=== PATIENT | female | born 1965 | race Caucasian/White ===

== ENCOUNTER 2021-12-05 11:40 | Emergency (ER) | payer OTHER, SELFPAY ==
[2021-12-05 12:18] VITALS: BP 138/78; PULSE 84; RESP 16; TEMP 36.4; O2SAT 96; BMI 29.7
--- NOTE | 2021-12-05 12:39 | ED_ITS ---
HPI - General Adult General Time Seen by Provider: 12:39 Date Seen: 12/05/21 Chief complaint: Extremity Pain/Injury, Lower Stated complaint: Pop/pain in right knee Time Seen by Provider: 12/05/21 11:43 Source: patient Mode of arrival: ambulatory Limitations: no limitations History of Present Illness HPI narrative: Patient is a 48 year white female who was gardening and injured her right knee. She felt a pop in the back of her knee. Her knee has been stiff involving her the last few days. No significant trauma, no for significant swelling in her calf or ankle, but she does have some swelling about her knee itself. No locking or catching. She has noticed a good deal of discomfort. Related Data Home Medications Medication Instructions Recorded Confirmed famotidine 20 mg tablet (Pepcid) 20 mg PO DAILY 12/05/21 12/05/21 ibuprofen 400 mg tablet 400 mg PO TID 12/05/21 12/05/21 Previous Rx's Medication Instructions Recorded ketorolac 10 mg tablet 10 mg PO TID PRN pain 5 days #10 12/05/21 tabs Allergies Allergy/AdvReac Type Severity Reaction Status Date / Time Cephalosporins Allergy Severe Hives Verified 12/05/21 12:26 codeine Allergy Severe Hives Verified 12/05/21 12:26 erythromycin base Allergy Severe Hives Verified 12/05/21 12:26 latex Allergy Severe Verified 12/05/21 12:26 metronidazole Allergy Severe Verified 12/05/21 12:26 penicillin V Allergy Severe Hives Verified 12/05/21 12:26 tetracycline Allergy Severe Hives Verified 12/05/21 12:26 tramadol Allergy Severe Hives Verified 12/05/21 12:26 dexamethasone Allergy Severe Hives Uncoded 12/05/21 12:26 Review of Systems Status of ROS: Reports: 6 or more systems reviewed and unremarkable except as noted in History and below [facility] Social History Smoking Status: Never smoker Do you use any of these nicotine containing products: None Second hand tobacco smoke exposure: No How often do you have a drink containing alcohol: never AUDIT-C Alcohol total score: 0 Non-prescribed substance use: denies use service: No Exam Narrative: Exam Narrative: Objective: Patient has right knee exam that shows mild diffuse swelling, no marked posterior swelling, no lower extremity below the knee swelling. She has got some decent flexibility with extension and flexion, but she does have discomfort, and she is tender posteriorly in the knee. No redness or erythema. Knee is stable to anterior drawer and posterior drawer, no medial lateral joint line tenderness Const: Vital Signs, click to edit/add: Vital Signs - 24 hr 12/05/21 12:18 12/05/21 13:00 Temperature 97.6 F 97.8 F Pulse Rate [Pulse Oximeter] 84 Respiratory Rate 16 Blood Pressure [Ri t Upper Arm] 138/78 Pulse Oximetry 96 Oxygen Delivery Me thod Room Air Course Course Hospital Course: Crutches and knee immobilizer applied, Toradol 10 mg given orally Vital Signs Vital signs: Initial Vital Signs Temperature 97.6 F 12/05/21 12:18 Temperature Source Temporal Artery Scan 12/05/21 12:18 Pulse Rate 84 12/05/21 12:18 Pulse Rhythm 12/05/21 12:18 Pulse Strength 3+ Normal 12/05/21 12:18 Respiratory Rate 16 12/05/21 12:18 Blood Pressure 138/78 12/05/21 12:18 Blood Pressure Mean 98 12/05/21 12:18 Blood Pressure Position Sitting 12/05/21 12:18 Pulse Oximetry 96 12/05/21 12:18 Oxygen Delivery Method 12/05/21 12:18 Vital Signs Temperature 97.6 F 12/05/21 12:18 Pulse Rate 84 12/05/21 12:18 Respiratory Rate 16 12/05/21 12:18 Blood Pressure 138/78 12/05/21 12:18 Pulse Oximetry 96 12/05/21 12:18 Oxygen Delivery Method 12/05/21 12:18 Temperature 97.8 F 12/05/21 13:00 Pulse Rate 84 12/05/21 12:18 Respiratory Rate 16 12/05/21 12:18 Blood Pressure 138/78 12/05/21 12:18 Pulse Oximetry 96 12/05/21 12:18 Oxygen Delivery Method 12/05/21 12:18 Medical Decision Making MDM Narrative Medical decision making narrative: The patient appears to have a soft tissue injury, unlikely an x-ray be helpful at this time in an emergent setting. I suspect she either has a plantaris tendon rupture or Burns cyst type rupture. Could certainly also have a posterolateral cartilaginous injury. At this point discussed treatment options with mutual decision making we elected to do a knee immobilizer crutches minimal weight-bearing, Toradol as needed Tylenol as needed, icing on a regular basis over the next couple of days then appointment opiate for orthopedics. She has seen Dr. Ryan in the past. The patient should hold on to her ibuprofen while taking Toradol, and she has taken I ibuprofen without difficulty in the past as mentioned thanks Discharge Plan Discharge Clinical Impression: Acute knee pain Patient Disposition: Home, Self-Care Condition: Stable Instructions: Crutch Instructions (ED), Knee Pain (ED) Additional Instructions: Light activity, crutches, knee immobilizer, ice on a regular basis, limit weight-bearing on the right lower extremity, orthopedic followup in 3-5 days please set up an appointment for the patient with Dr. Martinez, or [place] [phone]. Activity Level: Light activity and No Weight Bearing Discharge Diet: Regular Prescriptions: New ketorolac 10 mg tablet 10 mg PO TID PRN (Reason: pain) 5 Days Qty: 10 0RF No Action famotidine [Pepcid] 20 mg tablet 20 mg PO DAILY ibuprofen 400 mg tablet 400 mg PO TID Follow Up/Referrals: Provider,Not a Local [Primary Care Provider] - Stand Alone Forms: [employer] Info Instructions
[2021-12-05 13:00] VITALS: TEMP 36.6
[2021-12-05] MEDS: KETOROLAC 10 MG TABLET PO (13:00)
--- NOTE | 2021-12-05 13:20 | PC.NURSE ---
Patient was discharged. Discharge instructions were provided to patient. Prescription for Toradol was sent into [facility] in [place]. Applied a knee immobilizer and supplied patient with Crutches. Provided education for both of these. Patient preferred to leave in a wheelchair but was able to demonstrate use crutches. Patient will follow up with ortho in 3-5 days. Phone number provided. Patient had no further questions and left with neighbor. Patient's daughter is here visiting for a week and will be able to help her for the time being.
== END 2021-12-05 13:28 | disposition home or self-care (01) ==
PROVIDERS: Emergency Provider Family Medicine
DX: M25.561 Pain in right knee (principal)
CPT/HCPCS: 99283; A9270

== ENCOUNTER 2021-12-13 09:03 | Outpatient (CLI) | payer OTHER, SELFPAY ==
--- NOTE | 2021-12-13 09:15 | MR_ITS ---
[address] [address] Phone:?[phone] Fax:?[phone] Referring Physician Information: Obey Roger M.D. [id number] [facility] [address] Phone:?[phone] Fax:?[phone] Patient:Randa Zhong D.O.B:?1965 Sex:?Female Phone:?[phone] [facility] MRN:?[id number] Exam Date:?12/13/2021 ? EXAM: MRI EXAMINATION OF THE RIGHT KNEE CLINICAL INFORMATION: Right knee pain. No history of surgery to this area. Evaluate meniscal root tear or ruptured popliteal cyst. TECHNICAL INFORMATION: Coronal PD and STIR. Axial PD and T2 fat saturation. Sagittal PD and PD fat saturation images acquired. INTERPRETATION: Bones: No appreciable subchondral edema signal or cystic change. No evidence for an occult fracture, osseous contusion or stress reaction. No other abnormal bone marrow edema pattern is identified. Ligaments and tendons: The medial collateral ligament is intact, without acute sprain or tear. The iliotibial band, fibular collateral ligament, biceps femoris tendon and popliteus tendon all are intact. The anterior cruciate ligament is intact without acute sprain or tear. The posterior cruciate ligament is intact. Extensor Mechanism: The patellar and quadriceps tendons are intact. 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 The medial and lateral retinacula are intact. Knee Joint: There is a small to moderate knee joint effusion. No discrete popliteal cyst. There is no discrete loose body seen within the joint. Medial Compartment: Series 7 images 20 and 21 as well as series 4 images 20 and 21 as well as series 6 images 17 through 19 demonstrate a full-thickness radial tear of the far posterior horn medial meniscus, just adjacent to the posterior root insertion. Prominent abnormal intrasubstance signal in keeping with mucoid degeneration within the remainder of the posterior horn and continuing into the body. No displaced flap fragment or parameniscal cyst. There is no focal chondral defect. No other significant changes of chondromalacia. Lateral Compartment: There is no evidence for discrete lateral meniscal tear. No displaced flap fragment or parameniscal cyst. There is a 7 mm segment of grade II chondromalacia situated posterior medial to the mid surface of the lateral tibial plateau. No other significant changes of chondromalacia. Patellofemoral articulation: Chondromalacia with broad full-thickness cartilage loss involves the midline patella and lateral facet. Additional broad full- thickness and near full-thickness loss of the lateral trochlear groove. CONCLUSION: 1. There is a full-thickness radial tear involving the far posterior horn medial meniscus, just adjacent to the posterior root insertion. Prominent intrasubstance mucoid degeneration through the remainder of the posterior horn and into the body. 2. No evidence for a lateral meniscal tear. The cruciate ligaments are intact. 3. No evidence for a popliteal cyst or popliteal cyst rupture. 4. 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 5. There is a small segment of grade II appearing chondromalacia of the lateral tibial plateau. KES Electronically signed on 12/13/2021 11:36:00 AM by Lorenzo Geiger M.D.
== END 2021-12-13 09:04 | disposition home or self-care (01) ==
LOC: MRI 09:04
PROVIDERS: PCP Family Medicine; Visit Provider Orthopaedic Surgery
DX: M25.561 Pain in right knee (principal); M23.221 Derangement of posterior horn of medial meniscus due to old tear or injury, right knee; M94.261 Chondromalacia, right knee
CPT/HCPCS: 73721

== ENCOUNTER 2022-01-08 06:46 | Day surgery (SDC) | payer OTHER, SELFPAY ==
[2022-01-08] VITALS (8 sets, daily range): BP systolic 89–137; BP diastolic 38–88; PULSE 58–78; RESP 14–20; TEMP 36.3–36.8; O2SAT 95–99; BMI 29.9
[2022-01-08] MEDS: SODIUM CHLORIDE 0.9 % (FLUSH) 10 ML SYRINGE IVF (07:30)
[2022-01-08] MEDS: LACTATED RINGERS 1000 ML 1,000 ML 100 ML IV (07:30)
--- NOTE | 2022-01-08 08:49 | W.ANESCHARGE ---
Anesthesia Charges Start Date/Time Anesthesia Start Date: 01/08/22 Anesthesia Start Time: 08:05 Stop Date/Time Anesthesia Stop Date: 01/08/22 Anesthesia Stop Time: 09:32 Summary Emergency: No
--- NOTE | 2022-01-08 09:21 | PM.ORPRC ---
Procedure Note Date of procedure: 01/08/22 Procedure: SURGEON: Obey Roger MD [employer]: BERNARDINO Mclean PREOPERATIVE DIAGNOSIS: Right knee medial meniscus root tear POSTOPERATIVE DIAGNOSIS: Right knee medial meniscus root tear NAME OF OPERATION: Right knee arthroscopic medial meniscus root repair ANESTHESIA: Spinal ESTIMATED BLOOD LOSS: 0 mL COMPLICATIONS: None SPECIMENS: None DRAINS: None PREOPERATIVE ANTIBIOTICS: Clindamycin 600 mg INDICATIONS: The patient is a 56-year-old female with a history of right knee medial pain. MRI scan is consistent with a medial meniscus root tear. Despite appropriate nonoperative management, including activity modification, antiinflammatories, [id number] pain medication, bracing, physical therapy, and injections they continue to have pain and disability. Operative intervention was offered. The risks, benefits and expected outcomes were discussed in detail. These included but were not limited to: Infection, bleeding, injury to blood vessel or nerve, venous thromboembolism. All questions were answered to their satisfaction. PROCEDURE: Spinal anesthesia was administered. The patient was placed supine on the operating room table. The right lower extremity was prepped and draped in the usual sterile fashion. The limb was exsanguinated with the Clement bandage. The pneumatic tourniquet was inflated to 300 mmHg. A standard anterolateral portal was established. The arthroscope was introduced. The working portal was established anteromedially. Diagnostic arthroscopy was performed with findings as follows: The suprapatellar pouch is normal. Articular surface on the patella is normal. Articular surface on the trochlea is normal. The medial gutter is normal. The medial compartment shows diffuse grade 3 change on the medial femoral condyle, grade 2 change on the medial tibial plateau. The medial meniscus has a radial tear from the leading edge to the capsule, just off the posterior tibial attachment site. The notch shows the ACL to be intact. The lateral compartment shows normal articular cartilage on the lateral femoral condyle and lateral tibial plateau. The lateral meniscus is normal. The lateral gutter is normal. The undersurface of the posterior horn of the medial meniscus was debrided with the shaver. Unstable chondral flaps on the medial femoral condyle were debrided with the shaver. The knee scorpion was used to pass a fiber link x 2 in the posterior horn of the medial meniscus. The tibial drill guide was used over the footprint of the root. A longitudinal incision over the anteromedial face of the tibia was placed. The flip cutter was drilled into the footprint. The flip cutter was flipped and back cut 5 mm. It was removed and exchanged for a fiber stick. The fiber stick was brought out the anteromedial portal and was used to shuttle both of the fiber link luggage tag sutures on the posterior horn out the anteromedial tibia. We then tensioned the sutures and fixed them to the tibia with a SwiveLock anchor. This provided an excellent repair of the posterior tibial attachment of the medial meniscus to its anatomic footprint. The power pick was used to microfracture the notch both medially and laterally. Arthroscopic instruments were removed, the portal sites were Steri-Stripped closed, the incision over the tibia was closed with 3-0 Vicryl and 4-0 Monocryl, the knee was infiltrated with 30 mL of 0.25% Marcaine without epinephrine. A dry dressing was applied, the tourniquet was released. Sponge and needle counts were correct x 2. The patient tolerated the procedure well. There were no apparent complications. They were carefully transferred to the hospital bed and taken to the postanesthesia care unit in satisfactory condition. PLAN: The patient will be discharged to home. They will be strict nonweightbearing on the lower extremity for 6 weeks postoperatively. Range of motion will be allowed from 0-90 degrees x 2 weeks then unrestricted range of motion. They will follow up in 2 weeks for a wound check.
[2022-01-08] MEDS: fentaNYL 100 MCG/2 ML inj 50 MCG IVP (09:47)
[2022-01-08] MEDS: OxyCODONE/APAP 5-325 TABLET PO (10:34)
--- NOTE | 2022-01-08 10:44 | P.NB_ITS ---
Nerve Block Nerve Block Date Seen: 01/08/22 Type of block requested by surgeon for post-operative analgesia: geniculars Side: right Time out performed: Yes Verification of patient name: Yes Verification of date of : Yes Site marking: site marked Name of person performing procedure: Tyrel Continuous monitoring Was continuous monitoring of O2 sat, B/P, cardiac catheterization technologist, recorded every 15 minutes?: Yes Procedure Checklist: sterile prep, needles and gloves Medications given in 5ml increments after negative aspiration: Ropivicaine %: 0.5 mL: 9 Needle gauge: 25 Patient tolerated procedure well: Yes Block Charges Block Charge (with Pro Fee): Genicular Nerve Block Use of Ultrasound Machine for Block: No
--- NOTE | 2022-01-08 10:44 | W.ANESCHARGE ---
Anesthesia Charges Start Date/Time Anesthesia Start Date: 01/08/22 Anesthesia Start Time: 08:05 Stop Date/Time Anesthesia Stop Date: 01/08/22 Anesthesia Stop Time: 09:32 Summary Emergency: No
== END 2022-01-08 12:02 | disposition home or self-care (01) ==
PROVIDERS: PCP Family Medicine; Visit Provider Orthopaedic Surgery
PROC: (CPT 29882; principal; 2022-01-08 08:15)
DX: M23.221 Derangement of posterior horn of medial meniscus due to old tear or injury, right knee (principal)
CPT/HCPCS: 29882; 1400; 64454; A9270; C1713; J2250; J2400; J2704; J2795; J3010; J7120; S0077